=== PATIENT | male | born 1955 | race Caucasian/White ===

== ENCOUNTER 2017-11-16 16:38 | Emergency (ER) | payer BC ==
[~2017-11-16] VITALS: Ht 180.3 cm; Wt 99.8 kg
[~2017-11-16 16:38] MED LIST: NKM; NORCO 5-325 TA1 EACH ORAL
--- NOTE | 2017-11-16 18:29 | Diagnostic Imaging Report ---
Indication: Pain Technique: XRAY Knee 3v R Comparison: None Findings: There is no acute fracture or dislocation. There is mild degenerative change with joint space narrowing along the medial femorotibial compartment. Within the lateral soft tissues of the knee there is a 1.5 cm linear radiodensity which is concerning for foreign body. Impression: 1.5 cm linear radiodensity projecting over the lateral soft tissues of the proximal leg concerning for foreign body. Mild osteoarthrosis of the knee. No acute fracture. Findings discussed with Dr. Underwood of the ED on 18:23 on 11/16/17.
[2017-11-16] MEDS ORDERED: Bacitracin Oint UD TOPIC ONE ×2 (18:30→18:31)
--- NOTE | 2017-11-16 18:32 | Emergency Room Report ---
History of Present Illness General Chief Complaint: Lower Extremity Injury Source: Patient Present Illness HPI 62 YO male presents to ED c/o foreign body to the anterolateral right sustained after puncture wound when patient was rolling on the ground in the driveway. Patient notes acute onset 8/10 pain, small puncture wound with some scant bleeding.. Denies trauma or Patient reports pain is exacerbated upon walking especially bending his knee. Denies numbness tingling or loss of sensation or gross motor movements of the extremities, incontinence of bowel or bladder. Denies CP, Palpitations, LOC, AMS, dizziness, Changes in Vision, Sensation, paresthesias, or a sudden severe headache. Allergies: Coded Allergies: No Known Allergies (Unverified , 08/31/13) Patient History Past Medical History: see triage record Past Surgical History: none Pertinent Family History: none Reviewed Nursing Documentation: PMH: Agreed, PSxH: Agreed Nursing Documentation-PMH Past Medical History: No Stated History Review of Systems All Other Systems: negative except mentioned in HPI Physical Exam Vital Signs Date Time Temp Pulse Resp B/P (MAP) Pulse Ox O2 Delivery O2 Flow Rate FiO2 11/16/17 16:41 98.4 72 20 117/66 99 Room Air Sp02 EP Interpretation: reviewed, normal General Appearance: no apparent distress, alert, GCS 15, non-toxic Head: normocephalic, atraumatic Eyes: bilateral eye normal inspection, bilateral eye PERRL ENT: hearing grossly normal, normal voice Neck: full range of motion Respiratory: lungs clear, normal breath sounds, speaking full sentences Cardiovascular #1: regular rate, rhythm Gastrointestinal: normal bowel sounds, non tender, soft Rectal: deferred Genitourinary: normal inspection Musculoskeletal: back normal, gait/station normal, normal range of motion, tender - TTP to superficial right anterolateral knee, small puncture wound noted. Neurologic: alert, oriented x3, responsive, motor strength/tone normal, sensory intact, speech normal, grossly normal Psychiatric: judgement/insight normal Skin: normal color, no rash, warm/dry, well hydrated, other - small 0.2mm puncture wound noted to the right anterolateral knee. not bleeding at this time , no erythema. Procedures Additional Procedure Procedure Narrative PROCEDURE: SOFT TISSUE SLIVER FB REMOVAL: -Verbal consent from patient was obtained to remove superficial ST FB from Right anterolateral knee. - Area was cleaned and draped in a sterile fashion using swabs from I & D kit. - 3cc Lidocaine 1% plain was injected for local anesthesia. - small 1cm linear incision using no. 11 blade was used to allow visualization of fb. - ST Fb was visualized and removed using hemostats. - pt. no longer had pain upon palpation. Pt. tolerated well. there were no complications. -Sterile dressing was applied. -bacitracin and sterile dressing was applied by senior java software developer. Medical Decision Making PA Attestation Dr. cline is my supervising Physician whom patient management has been discussed with. Diagnostic Impression: Primary Impression: Foreign body (FB) in soft tissue ER Course 62 YO male presents to ED c/o foreign body to the anterolateral right sustained after puncture wound when patient was rolling on the ground in the driveway. Patient notes acute onset 8/10 pain, small puncture wound with some scant bleeding.. Denies trauma or Patient reports pain is exacerbated upon walking especially bending his knee. Denies numbness tingling or loss of sensation or gross motor movements of the extremities, incontinence of bowel or bladder. Denies CP, Palpitations, LOC, AMS, dizziness, Changes in Vision, Sensation, paresthesias, or a sudden severe headache. Ddx considered but are not limited to cellulitis, retained FB, cyst/abscess, puncture wound, laceration Vital signs: are WNL, pt. is afebrile H&PE are most consistent with retained FB in the ST of right anterolateral knee. ORDERS: none required at this time, the diagnosis is clinical - - X-ray : Positive for radiopaque metallic small fb, liner, no acute fractures. ED INTERVENTIONS: -Motrin PO - Incision and removal - Bacitracin is applied. DISCHARGE: At this time pt. is stable for d/c to home. Will provide printed patient care instructions, and any necessary prescriptions. Care plan and follow up instructions have been discussed with the patient prior to discharge. Other X-Ray Diagnostic Results Other X-Ray Diagnostic Results : X-Ray ordered: Right knee # of Views/Limited Vs Complete: 3 View Indication: Pain EP Interpretation: Yes PA Xray: Interpretation reviewed, by supervising MD Interpretation: no dislocation, no soft tissue swelling, no fractures, other - Radiopaque linear foreign body noted on x-ray. Right anterolateral side of knee. Impression: Other - Radiopaque linear foreign body noted on x-ray. Right anterolateral side of knee. Electronically Signed by: Radha Larson PA-C Last Vital Signs Date Time Temp Pulse Resp B/P (MAP) Pulse Ox O2 Delivery O2 Flow Rate FiO2 11/16/17 16:41 98.4 72 20 117/66 99 Room Air Disposition: HOME, SELF-CARE Condition: Stable Scripts Hydrocodone Bit/Acetaminophen 5-325* (NORCO 5-325*) 1 Each Tablet 1 TAB ORAL Q6H Y for For Pain, #2 TAB 0 Refills Prov: Radha Larson 11/16/17 Ibuprofen* (MOTRIN*) 600 Mg Tablet 600 MG ORAL THREE TIMES A DAY, #30 TAB 0 Refills Prov: Radha Larson 11/16/17 Bacitracin/Polymyxin B Sulfate (BACITRACIN-POLYMYXIN OINTMENT) 28.35 Gm Oint...g. 1 APPLIC TP BID, #28.3 GM Prov: Radha Larson 11/16/17 Amoxicillin/Potassium Clav 875-125* (AUGMENTIN 875-125 TABLET*) 1 Each Tablet 1 TAB ORAL TWICE A DAY for 7 Days, #14 TAB Prov: Radha Larson 11/16/17 Patient Instructions: Sliver Removal, Care After Additional Instructions: Take medications as directed. Follow up with a Primary Care Provider in 3-5 days, even if your symptoms have resolved. --Please review list of primary care clinics, if you do not already have a primary care provider Return sooner to ED if new symptoms occur, or current symptoms become worse. - Please note that this Emergency Department Report was dictated using [employer] sawyer technology software, occasionally this can lead to erroneous entry secondary to interpretation by the dictation equipment. Radha Larson Nov 16, 2017 18:32
[2017-11-16] MEDS ORDERED: AUGMENTIN 875-1 EAC1 ORAL (18:33)
[2017-11-16] MEDS ORDERED: IBUPROFEN600 MG ORAL (18:33)
[2017-11-16] MEDS ORDERED: BACITRACIN-P28.35 GM TP (18:33)
[2017-11-16] MEDS ORDERED: NORCO 5-325 TA1 EACH ORAL (18:33)
[2017-11-16 18:42] VITALS: BP 117/66
== END 2017-11-16 18:42 | disposition home or self-care (01) ==
LOC: EMR 17:23
DX: S81.041A Puncture wound with foreign body, right knee, initial encounter (principal); X58.XXXA Exposure to other specified factors, initial encounter; Y92.008 Other place in unspecified non-institutional (private) residence as the place of occurrence of the external cause
CPT/HCPCS: 99284